=== PATIENT | female | born 1975 | race Caucasian/White ===

== ENCOUNTER 2019-04-17 08:43 | Day surgery (SDC) | payer OTHER ==
[~2019-04-17] VITALS: Ht 172.7 cm; Wt 98.9 kg
[2019-04-17] MEDS ORDERED: LIDOCAINE 2% 100 MG/5 ML UJET TP ONE (11:50)
[2019-04-17] MEDS ORDERED: fentaNYL 0.05 MG/ML VIAL ONE (11:50)
[2019-04-17] MEDS ORDERED: fentaNYL 0.05 MG/ML VIAL IVP ONE (12:40)
== END 2019-04-17 13:22 | disposition home or self-care (01) ==
LOC: MDS 08:43 → MMU 08:47 → MDS 13:22
PROVIDERS: ATTEND Internal Medicine Gastroenterology
DX: K63.5 Polyp of colon (principal); K64.8 Other hemorrhoids; D64.9 Anemia, unspecified; F41.9 Anxiety disorder, unspecified
CPT/HCPCS: 45385; 81025; J3010